=== PATIENT | male | born 1990 | race Asian ===

== ENCOUNTER 2023-10-21 22:54 | Emergency (ER) | payer OTHER ==
[~2023-10-21] VITALS: Ht 172.7 cm; Wt 99.8 kg
[2023-10-22] MEDS ORDERED: HYDROCODONE/APAP 5/325MG TABLET ONE (00:33)
[2023-10-22] MEDS: IV NS 0.9% 1,000 ML BAG IV ONE (00:36)
[2023-10-22] MEDS: HYDROCODONE/APAP 5/325MG TABLET PO ONE (00:36)
[2023-10-22 00:45] LABS: BASOPHILS % (AUTO) 0.3 % (0.0-2.0); EOSINOPHILS # (AUTO) 0.2 K/uL (0.0-0.7); EOSINOPHILS % (AUTO) 1.4 % (0.0-6.0); HEMATOCRIT 52 % (39-51); HEMOGLOBIN 17.9 g/dL (13.5-17.5); LYMPHOCYTES # (AUTO) 1.8 K/uL (0.8-4.8); LYMPHOCYTES % (AUTO) 11.5 % (20.0-44.0); MEAN CORPUSCULAR HEMOGLOBIN 34 PG (26.0-33.0); MEAN CORPUSCULAR HGB CONC 35 g/dl (31.0-36.0); MEAN CORPUSCULAR VOLUME 97 fL (80-96); MONOCYTES # (AUTO) 0.9 K/uL (0.1-1.30); NEUTROPHILS # (AUTO) 12.7 K/uL (1.8-8.9); NEUTROPHILS % (AUTO) 80.8 % (43.0-81.0); PLATELET COUNT (AUTO) 180 K/uL (150-450); RED BLOOD CELL COUNT(AUTO) 5.33 MIL/uL (4.5-6.0); WHITE BLOOD COUNT (AUTO) 15.8 K/uL (4.3-11.0)
[2023-10-22 00:58] LABS: CALCIUM, SERUM 8.6 mg/dL (8.5-10.1); CREATININE 1.4 mg/dL (0.6-1.3); POTASSIUM 3.7 mmol/L (3.5-5.1)
[2023-10-22] MEDS ORDERED: IBUP-1953 PO (01:09)
[2023-10-22] MEDS ORDERED: HYDR-3972 PO (01:09)
[2023-10-22 01:31] VITALS: BP 121/70; TEMP 98.2; O2SAT 97
== END 2023-10-22 01:32 | disposition home or self-care (01) ==
LOC: ER 22:56
DX: S22.31XA Fracture of one rib, right side, initial encounter for closed fracture (principal); R55 Syncope and collapse; W18.2XXA Fall in (into) shower or empty bathtub, initial encounter; Y93.E1 Activity, personal bathing and showering; Y92.012 Bathroom of single-family (private) house as the place of occurrence of the external cause; Y99.8 Other external cause status
CPT/HCPCS: 99284; 71250; 96360; 93005; 70450; 85025; 80048; 36415; 82962; J7030